=== PATIENT | male | born 1970 | race Two or more races ===

== ENCOUNTER 2020-06-09 11:34 | Inpatient (IN) | payer OTHER ==
--- NOTE | 2020-06-09 11:52 | BHS.RME ---
Substance Use & Tx History - Substance Use History Alcohol Substance amount: 1 case beers + 1 pint hard liquor Frequency of use: Daily Substance route: Oral Date of Last Use: 06/08/20 Marijuana/Hashish Substance amount: $40 Frequency of use: Daily Substance route: Smoking Date of Last Use: 06/08/20 Physical/Psych/Mental Status - Behavior General Behavior: Increased activity (restlessness, agitation) Eye Contact: Normal - Cooperativeness Cooperativeness: Cooperative - Thinking Thought Processes: Tight, Logical, Goal Directed - Physical Health Problems Is patient presently having any pain?: No Does patient presently have any injuries (include location): No Does patient currently have a fever: No Is patient : No CIWA Nausea/Vomitin-Mild Nausea/No Vomiting Muscle Tremors: 2 Anxiety: 2 Agitation: 3 Paroxysmal Sweats: 1-Minimal Palms Moist Orientation: 0-Oriented Tacttile Disturbances: 2-Mild Itch/Numbness/Burn Auditory Disturbances: 0-None Visual Disturbances: 0-None Headache: 2-Mild CIWA-Ar Total Score: 13
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
[2020-06-09] MEDS ORDERED: chlordiazePOXIDE HCL 25 MG CAPSULE PO PRN (13:53)
[2020-06-09] MEDS ORDERED: BISMUTH SUBSALICYLATE 262 MG/15 ML BTL PO PRN (13:53)
[2020-06-09] MEDS ORDERED: MAGNESIUM CITRATE 300 ML BOTTLE PO PRN (13:53)
[2020-06-09] MEDS ORDERED: ONDANSETRON *ODT* 4 MG TABLET SL PRN (13:53)
[2020-06-09] MEDS ORDERED: IBUPROFEN 400 MG TABLET (FP) PO PRN (13:53)
[2020-06-09] MEDS ORDERED: MAGNESIUM HYDROX 2400MG/30ML ORAL SUSPENSION 30 ML CUP PO PRN (13:53)
[2020-06-09] MEDS ORDERED: ACETAMINOPHEN 325 MG TABLET (FP) PO PRN ×2 (13:53)
[2020-06-09] MEDS ORDERED: NICOTINE POLACRILEX 2 MG GUM BUC PRN (13:53)
[2020-06-09] MEDS ORDERED: MENTHOL/PHENOL 1 EACH UD MM PRN (13:53)
[2020-06-09] MEDS ORDERED: METHOCARBAMOL 500 MG TABLET PO PRN (13:53)
[2020-06-09 14:18] VITALS: BMI 23.6
[2020-06-09] MEDS ORDERED: TUBERCULIN PPD 5 TU/0.1ML VIAL ID ONE (15:32)
[2020-06-09] MEDS: levETIRAcetam 500 MG TABLET (FP) PO SCH ×2 (15:39→22:57)
[2020-06-09] MEDS: hydrOXYzine PAMOATE 25 MG CAPSULE (FP) PO SCH ×3 (15:39→22:58)
[2020-06-09 18:00] LABS: HEMATOCRIT 43.2 % (35.4-49); HEMOGLOBIN 14.3 GM/dL (11.7-16.9); MCH 30.4 pg (25.7-33.7); MCHC 33.1 g/dl (32.0-35.9); MEAN CELL VOLUME 91.9 fl (80-96); MEAN PLT VOLUME 8.4 fl (7.5-11.1); PLATELET COUNT 282 K/MM3 (134-434); RBC 4.71 M/mm3 (4.00-5.60); RDW 14.3 % (11.9-15.9); WHITE BLOOD COUNT 7.4 K/mm3 (4.0-10.0)
[2020-06-09 18:14] LABS: ALBUMIN 3.9 g/dl (3.4-5.0); BLOOD UREA NITROGEN 13.4 mg/dL (7-18); CALCIUM 8.9 mg/dL (8.5-10.1); CREATININE 0.8 mg/dL (0.55-1.3); POTASSIUM 4.3 mmol/L (3.5-5.1); TOT PROT 7.4 g/dl (6.4-8.2)
[2020-06-09] MEDS: chlordiazePOXIDE HCL 25 MG CAPSULE PO SCH ×2 (19:09→22:58)
[2020-06-09] MEDS: MELATONIN 5 MG TABLETS PO SCH (22:57)
[2020-06-09] MEDS: THIAMINE HCL 100 MG TABLET (FP) PO SCH (22:58)
[2020-06-10] MEDS: hydrOXYzine PAMOATE 25 MG CAPSULE (FP) PO SCH ×5 (06:24→22:26)
[2020-06-10] MEDS: chlordiazePOXIDE HCL 25 MG CAPSULE PO SCH ×4 (06:24→22:26)
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
[2020-06-10] MEDS: PRENATAL VITAMINS W/ FOLIC ACID TABLET (FP) PO SCH (10:56)
[2020-06-10] MEDS: NICOTINE 7 MG/24 HOURS TOPICAL PATCH TD SCH (10:56)
[2020-06-10] MEDS: levETIRAcetam 500 MG TABLET (FP) PO SCH ×2 (10:57→22:25)
--- NOTE | 2020-06-10 11:54 | PN ---
S CIWA - CIWA Score Nausea/Vomitin-No Nausea/No Vomiting Muscle Tremors: 2 Anxiety: 3 Agitation: 3 Paroxysmal Sweats: No Perspiration Orientation: 0-Oriented Tacttile Disturbances: 0-None Auditory Disturbances: 0-None Visual Disturbances: 0-None Headache: 0-None Present CIWA-Ar Total Score: 8 BHS Progress Note (SOAP) Subjective: Pt is a 49 y/o male admitted to detox for withdrawal sx. c/o anxiety fatigue Objective: 06/10/20 13:20 Vital Signs - 24 hr 06/09/20 06/09/20 06/09/20 14:14 15:05 18:35 Temperature 97.8 F 97.8 F 97.3 F L Pulse Rate 57 L 50 L 60 Respiratory 16 18 18 Rate Blood Pressure 122/78 119/66 121/71 O2 Sat by Pulse 95 97 Oximetry (%) 06/09/20 06/10/20 06/10/20 21:12 06:34 08:50 Temperature 97.3 F L 98 F 97.1 F L Pulse Rate 53 L 49 L 54 L Respiratory 18 18 19 Rate Blood Pressure 121/74 110/71 100/60 O2 Sat by Pulse 96 96 96 Oximetry (%) Laboratory Tests 06/09/20 06/09/20 06/09/20 13:40 13:40 13:40 WBC 7.4 RBC 4.71 Hgb 14.3 Hct 43.2 MCV 91.9 MCH 30.4 MCHC 33.1 RDW 14.3 Plt Count 282 MPV 8.4 Sodium 141 Potassium 4.3 Chloride 104 Carbon Dioxide 32 Anion Gap 5 L BUN 13.4 Creatinine 0.8 Est GFR (CKD-EPI)AfAm 120.72 Est GFR (CKD-EPI)NonAf 104.16 Random Glucose 115 H Calcium 8.9 Total Bilirubin 1.0 AST 14 L ALT 26 Alkaline Phosphatase 70 Total Protein 7.4 Albumin 3.9 Syphilis Serology Non-reactive covid-19 result pending alert o x 3 nad oob ambulating with steady gait. Assessment: 06/10/20 13:20 mild withdrawal sx Plan: cont detox increase po fluids maintain safety
[2020-06-10] MEDS: THIAMINE HCL 100 MG TABLET (FP) PO SCH (22:26)
[2020-06-10] MEDS: MELATONIN 5 MG TABLETS PO SCH (22:26)
[2020-06-11] MEDS: hydrOXYzine PAMOATE 25 MG CAPSULE (FP) PO SCH ×5 (06:53→22:13)
[2020-06-11] MEDS: chlordiazePOXIDE HCL 25 MG CAPSULE PO SCH ×4 (06:54→22:13)
[2020-06-11] MEDS: NICOTINE 7 MG/24 HOURS TOPICAL PATCH TD SCH (10:46)
[2020-06-11] MEDS: PRENATAL VITAMINS W/ FOLIC ACID TABLET (FP) PO SCH (10:46)
[2020-06-11] MEDS: levETIRAcetam 500 MG TABLET (FP) PO SCH ×2 (10:47→22:12)
--- NOTE | 2020-06-11 10:47 | PN ---
S CIWA - CIWA Score Nausea/Vomitin-No Nausea/No Vomiting Muscle Tremors: None Anxiety: 2 Agitation: 0-Normal Activity Paroxysmal Sweats: 3 Orientation: 0-Oriented Tacttile Disturbances: 0-None Auditory Disturbances: 0-None Visual Disturbances: 0-None Headache: 2-Mild CIWA-Ar Total Score: 7 BHS Progress Note (SOAP) Subjective: c/o anxiety, sweats, and headache. Objective: 06/11/20 10:48 Vital Signs 06/11/20 06/11/20 06:06 09:43 Temperature 97.4 F L 98.2 F Pulse Rate 57 L 66 Respiratory 18 18 Rate Blood Pressure 115/63 133/60 O2 Sat by Pulse 99 99 Oximetry (%) Laboratory Last Values WBC 7.4 K/mm3 (4.0-10.0) 06/09/20 13:40 RBC 4.71 M/mm3 (4.00-5.60) 06/09/20 13:40 Hgb 14.3 GM/dL (11.7-16.9) 06/09/20 13:40 Hct 43.2 % (35.4-49) 06/09/20 13:40 MCV 91.9 fl (80-96) 06/09/20 13:40 MCH 30.4 pg (25.7-33.7) 06/09/20 13:40 MCHC 33.1 g/dl (32.0-35.9) 06/09/20 13:40 RDW 14.3 % (11.9-15.9) 06/09/20 13:40 Plt Count 282 K/MM3 (134-434) 06/09/20 13:40 MPV 8.4 fl (7.5-11.1) 06/09/20 13:40 Sodium 141 mmol/L (136-145) 06/09/20 13:40 Potassium 4.3 mmol/L (3.5-5.1) 06/09/20 13:40 Chloride 104 mmol/L (98-107) 06/09/20 13:40 Carbon Dioxide 32 mmol/L (21-32) 06/09/20 13:40 Anion Gap 5 MMOL/L (8-16) L 06/09/20 13:40 BUN 13.4 mg/dL (7-18) 06/09/20 13:40 Creatinine 0.8 mg/dL (0.55-1.3) 06/09/20 13:40 Est GFR (CKD-EPI)AfAm 120.72 06/09/20 13:40 Est GFR (CKD-EPI)NonAf 104.16 06/09/20 13:40 Random Glucose 115 mg/dL (74-106) H 06/09/20 13:40 Calcium 8.9 mg/dL (8.5-10.1) 06/09/20 13:40 Total Bilirubin 1.0 mg/dL (0.2-1) 06/09/20 13:40 AST 14 U/L (15-37) L 06/09/20 13:40 ALT 26 U/L (13-61) 06/09/20 13:40 Alkaline Phosphatase 70 U/L (45-117) 06/09/20 13:40 Total Protein 7.4 g/dl (6.4-8.2) 06/09/20 13:40 Albumin 3.9 g/dl (3.4-5.0) 06/09/20 13:40 Syphilis Serology Non-reactive (NONREACTIVE) 06/09/20 13:40 Labs noted. Assessment: 06/11/20 10:48 AOX3, in no acute respiratory distress. Full ROM, ambulating in the unit. Withdrawal symptoms. Plan: continue detox.
[2020-06-11] MEDS: MAG HYDROX/AL HYDROX/SIMETH 30 ML UNIT-DOSE CUP PO PRN ×2 (14:12→19:13)
[2020-06-11] MEDS: MELATONIN 5 MG TABLETS PO SCH (22:13)
[2020-06-11] MEDS: THIAMINE HCL 100 MG TABLET (FP) PO SCH (22:13)
[2020-06-12] MEDS ORDERED: chlordiazePOXIDE HCL 10 MG CAPSULE PO PRN
[2020-06-12] MEDS: hydrOXYzine PAMOATE 25 MG CAPSULE (FP) PO SCH ×5 (06:42→22:28)
[2020-06-12] MEDS: chlordiazePOXIDE HCL 10 MG CAPSULE PO SCH ×4 (06:42→22:28)
[2020-06-12] MEDS: PRENATAL VITAMINS W/ FOLIC ACID TABLET (FP) PO SCH (10:56)
[2020-06-12] MEDS: NICOTINE 7 MG/24 HOURS TOPICAL PATCH TD SCH (10:56)
[2020-06-12] MEDS: levETIRAcetam 500 MG TABLET (FP) PO SCH ×2 (10:56→22:28)
--- NOTE | 2020-06-12 16:52 | PN ---
S CIWA - CIWA Score Nausea/Vomitin-No Nausea/No Vomiting Muscle Tremors: 2 Anxiety: 2 Agitation: 1-Slight > Activity Paroxysmal Sweats: 1-Minimal Palms Moist Orientation: 0-Oriented Tacttile Disturbances: 0-None Auditory Disturbances: 0-None Visual Disturbances: 0-None Headache: 0-None Present CIWA-Ar Total Score: 6 BHS Progress Note (SOAP) Subjective: Fatigue Patient request chicken meals or soup only, stated he's athletic and doesn't eat meat or fish Objective: 06/12/20 16:48 Last Vital Signs Temp Pulse Resp BP Pulse Ox 98.7 F 69 18 106/72 98 06/12/20 13:16 06/12/20 13:16 06/12/20 13:16 06/12/20 13:16 06/12/20 13:16 Laboratory Tests 06/09/20 06/09/20 06/09/20 13:40 13:40 13:40 WBC 7.4 RBC 4.71 Hgb 14.3 Hct 43.2 MCV 91.9 MCH 30.4 MCHC 33.1 RDW 14.3 Plt Count 282 MPV 8.4 Sodium 141 Potassium 4.3 Chloride 104 Carbon Dioxide 32 Anion Gap 5 L BUN 13.4 Creatinine 0.8 Est GFR (CKD-EPI)AfAm 120.72 Est GFR (CKD-EPI)NonAf 104.16 Random Glucose 115 H Calcium 8.9 Total Bilirubin 1.0 AST 14 L ALT 26 Alkaline Phosphatase 70 Total Protein 7.4 Albumin 3.9 Syphilis Serology Non-reactive COVID-19 ([facility]) 06/09/20 13:54 WBC RBC Hgb Hct MCV MCH MCHC RDW Plt Count MPV Sodium Potassium Chloride Carbon Dioxide Anion Gap BUN Creatinine Est GFR (CKD-EPI)AfAm Est GFR (CKD-EPI)NonAf Random Glucose Calcium Total Bilirubin AST ALT Alkaline Phosphatase Total Protein Albumin Syphilis Serology COVID-19 ([facility]) Not detected Labs reviewed: serum glucose 115 (high) Assessment: 06/12/20 16:49 Withdrawal sxs Noted with hyperglycemia Plan: Continue detox Encourage PO water intake Hyperglycemia: mild, denies DM, could be r/t withdrawal, repeat fasting glucose
[2020-06-12] MEDS: MAG HYDROX/AL HYDROX/SIMETH 30 ML UNIT-DOSE CUP PO PRN (21:25)
[2020-06-12] MEDS: MELATONIN 5 MG TABLETS PO SCH (22:28)
[2020-06-12] MEDS: THIAMINE HCL 100 MG TABLET (FP) PO SCH (22:28)
[2020-06-13] MEDS: chlordiazePOXIDE HCL 10 MG CAPSULE PO SCH ×2 (06:49→17:57)
[2020-06-13] MEDS: hydrOXYzine PAMOATE 25 MG CAPSULE (FP) PO SCH ×3 (06:51→13:15)
[2020-06-13] MEDS: PRENATAL VITAMINS W/ FOLIC ACID TABLET (FP) PO SCH (10:58)
[2020-06-13] MEDS: NICOTINE 7 MG/24 HOURS TOPICAL PATCH TD SCH (10:58)
[2020-06-13] MEDS: levETIRAcetam 500 MG TABLET (FP) PO SCH ×2 (10:59→22:21)
[2020-06-13] MEDS: MAG HYDROX/AL HYDROX/SIMETH 30 ML UNIT-DOSE CUP PO PRN ×2 (13:17→22:41)
--- NOTE | 2020-06-13 15:15 | PN ---
BHS CIWA - CIWA Score Nausea/Vomitin-No Nausea/No Vomiting Muscle Tremors: 2 Anxiety: 3 Agitation: 0-Normal Activity Paroxysmal Sweats: 1-Minimal Palms Moist Orientation: 0-Oriented Tacttile Disturbances: 0-None Auditory Disturbances: 0-None Visual Disturbances: 0-None Headache: 0-None Present CIWA-Ar Total Score: 6 BHS Progress Note (SOAP) Subjective: c/o anxiety "gas" Objective: 06/13/20 15:11 Vital Signs - 24 hr 06/12/20 06/12/20 06/13/20 16:52 20:55 07:00 Temperature 97.5 F L 97.3 F L 97.9 F Pulse Rate 60 67 51 L Respiratory 18 17 18 Rate Blood Pressure 114/46 L 114/60 103/63 O2 Sat by Pulse 97 97 Oximetry (%) Laboratory Tests 06/09/20 06/09/20 06/09/20 13:40 13:40 13:40 WBC 7.4 RBC 4.71 Hgb 14.3 Hct 43.2 MCV 91.9 MCH 30.4 MCHC 33.1 RDW 14.3 Plt Count 282 MPV 8.4 Sodium 141 Potassium 4.3 Chloride 104 Carbon Dioxide 32 Anion Gap 5 L BUN 13.4 Creatinine 0.8 Est GFR (CKD-EPI)AfAm 120.72 Est GFR (CKD-EPI)NonAf 104.16 Random Glucose 115 H Calcium 8.9 Total Bilirubin 1.0 AST 14 L ALT 26 Alkaline Phosphatase 70 Total Protein 7.4 Albumin 3.9 Levetiracetam Syphilis Serology Non-reactive COVID-19 ([facility]) 06/09/20 06/09/20 13:40 13:54 WBC RBC Hgb Hct MCV MCH MCHC RDW Plt Count MPV Sodium Potassium Chloride Carbon Dioxide Anion Gap BUN Creatinine Est GFR (CKD-EPI)AfAm Est GFR (CKD-EPI)NonAf Random Glucose Calcium Total Bilirubin AST ALT Alkaline Phosphatase Total Protein Albumin Levetiracetam <1.0 L Syphilis Serology COVID-19 ([facility]) Not detected covid-19 not detected alert o x 3 nad pt seen in bed at rounds and communicated needs coherently Assessment: 06/13/20 15:14 withdrawal sx Plan: cont detox increase po fluids maintain safety [place] prn
[2020-06-13] MEDS: MELATONIN 5 MG TABLETS PO SCH (22:21)
[2020-06-13] MEDS: THIAMINE HCL 100 MG TABLET (FP) PO SCH (22:21)
[2020-06-14] MEDS ORDERED: chlordiazePOXIDE HCL 10 MG CAPSULE PO ONE (05:00)
[2020-06-14 06:36] VITALS: BP 108/51; PULSE 51; TEMP 97.3
--- NOTE | 2020-06-14 09:07 | DS ---
[facility] Detox Discharge Summary Admission Date: 06/09/20 Discharge Date: 06/14/20 - History Present History: Alcohol Dependence, Cannabis Dependence Additional Comments: Pt [facility] [address] Pertinent Past History: Seizure Disorder Dislipidemia PTSD - Physical Exam Results Vital Signs: Vital Signs Temperature 97.3 F L 06/14/20 06:01 Pulse Rate 51 L 06/14/20 06:01 Respiratory Rate 16 06/14/20 06:01 Blood Pressure 108/51 L 06/14/20 06:01 O2 Sat by Pulse Oximetry (%) 98 06/14/20 06:01 alert o x 3 nad oob ambulating with steady gait cardiac;s1 s2,rrr lungs;ctab abdomen:soft,+bs,nt,nd extremities:no edema,skin intact Pertinent Admission Physical Exam Findings: Laboratory Tests 06/09/20 06/09/20 06/09/20 13:40 13:40 13:40 WBC 7.4 RBC 4.71 Hgb 14.3 Hct 43.2 MCV 91.9 MCH 30.4 MCHC 33.1 RDW 14.3 Plt Count 282 MPV 8.4 Sodium 141 Potassium 4.3 Chloride 104 Carbon Dioxide 32 Anion Gap 5 L BUN 13.4 Creatinine 0.8 Est GFR (CKD-EPI)AfAm 120.72 Est GFR (CKD-EPI)NonAf 104.16 Random Glucose 115 H Calcium 8.9 Total Bilirubin 1.0 AST 14 L ALT 26 Alkaline Phosphatase 70 Total Protein 7.4 Albumin 3.9 Levetiracetam Syphilis Serology Non-reactive COVID-19 ([facility]) 06/09/20 06/09/20 13:40 13:54 WBC RBC Hgb Hct MCV MCH MCHC RDW Plt Count MPV Sodium Potassium Chloride Carbon Dioxide Anion Gap BUN Creatinine Est GFR (CKD-EPI)AfAm Est GFR (CKD-EPI)NonAf Random Glucose Calcium Total Bilirubin AST ALT Alkaline Phosphatase Total Protein Albumin Levetiracetam <1.0 L Syphilis Serology COVID-19 ([facility]) Not detected - Treatment Hospital Course: Detox Protocol Followed, Detoxed Safely, Responded well, Discharged Condition Good, Rehab Referral Accepted Patient has Accepted a Rehab Referral to: [facility] - Medication Discharge Medications: Ambulatory Orders levETIRAcetam [Keppra -] 500 mg PO BID 06/09/20 - Diagnosis (1) Seizure disorder Status: Chronic (2) Alcohol dependence with withdrawal, uncomplicated Status: Acute (3) Dyslipidemia Status: Chronic (4) Meningioma Status: Chronic (5) Nicotine dependence Status: Acute Qualifiers: Nicotine product type: cigarettes Substance use status: in withdrawal Qualified Code(s): F17.213 - Nicotine dependence, cigarettes, with withdrawal (6) Hypercholesterolemia Status: Chronic (7) Cannabis dependence Status: Acute - AMA Did Patient Leave Against Medical Advice: No
[2020-06-14] MEDS: PRENATAL VITAMINS W/ FOLIC ACID TABLET (FP) PO SCH (10:23)
[2020-06-14] MEDS: NICOTINE 7 MG/24 HOURS TOPICAL PATCH TD SCH (10:23)
[2020-06-14] MEDS: levETIRAcetam 500 MG TABLET (FP) PO SCH (10:23)
== END 2020-06-14 11:10 | disposition other institution (70) | DRG 774 ==
LOC: YASAS 11:34 → Y5N DETOX 14:34
PROVIDERS: ADMIT Allergy & Immunology; ATTEND Allergy & Immunology
PROC: HZ2ZZZZ Detoxification Services for Substance Abuse Treatment (ICD-10-PCS; principal; 2020-06-09)
DX: F10.230 Alcohol dependence with withdrawal, uncomplicated (principal); F10.24 Alcohol dependence with alcohol-induced mood disorder; F10.280 Alcohol dependence with alcohol-induced anxiety disorder; F12.20 Cannabis dependence, uncomplicated; F14.21 Cocaine dependence, in remission; F34.1 Dysthymic disorder; F39 Unspecified mood [affective] disorder; D32.0 Benign neoplasm of cerebral meninges; R73.9 Hyperglycemia, unspecified; G40.909 Epilepsy, unspecified, not intractable, without status epilepticus; Z91.14 Patient's other noncompliance with medication regimen; Z91.013 Allergy to seafood; Z91.018 Allergy to other foods
CPT/HCPCS: 36415; 80053; 80177; 85027; 86780; U0003

== ENCOUNTER 2020-06-14 11:37 | Inpatient (IN) | payer OTHER ==
[2020-06-14] MEDS ORDERED: MAGNESIUM HYDROX 2400MG/30ML ORAL SUSPENSION 30 ML CUP PO PRN (12:53)
[2020-06-14] MEDS ORDERED: MAGNESIUM CITRATE 300 ML BOTTLE PO PRN (12:53)
[2020-06-14] MEDS ORDERED: P-EPHED 60MG/TRIPROLIDI 2.5MG TABLET PO PRN (12:53)
[2020-06-14] MEDS ORDERED: MENTHOL/PHENOL 1 EACH UD MM PRN (12:53)
[2020-06-14] MEDS ORDERED: hydrOXYzine PAMOATE 25 MG CAPSULE (FP) PO PRN (12:53)
[2020-06-14] MEDS ORDERED: IBUPROFEN 400 MG TABLET (FP) PO PRN (12:53)
[2020-06-14] MEDS ORDERED: ACETAMINOPHEN 325 MG TABLET (FP) PO PRN (12:53)
[2020-06-14] MEDS ORDERED: LOPERAMIDE HCL 2 MG CAPSULE PO PRN (12:53)
[2020-06-14] MEDS ORDERED: guaiFENesin 200 MG/10 ML 10 ML UNIT-DOSE CUPS PO PRN (12:53)
[2020-06-14] MEDS ORDERED: NICOTINE POLACRILEX 2 MG GUM BUC PRN (12:53)
--- NOTE | 2020-06-14 13:27 | HP ---
[facility] Rehab Assess/Revision - Admission History Date of Admission to Rehab: 06/14/20 - Vital signs Vital Signs: Vital Signs Period Temp Pulse Resp BP Sys/Lopez Pulse Ox Last 24 Hr 97.5 F 61 18 122/65 - Findings Detox History & Physical reviewed: Yes Concur with findings: Yes Inpatient Rehab Admission - Rehab Decision to Admit Inpatient rehab admission?: Yes - Initial Determination Are CD services needed?: Yes Free of communicable disease: Yes Not in need of hospitalization: Yes - Rehab Admission Criteria Previous failed treatment: Yes Poor recovery environment: Yes Comorbidities: Yes Lacks judgement: Yes Patient is meeting Inpatient Rehab admission criteria:: Yes
[2020-06-14] MEDS: MELATONIN 5 MG TABLETS PO SCH (21:11)
[2020-06-14] MEDS: THIAMINE HCL 100 MG TABLET (FP) PO SCH (21:12)
[2020-06-14] MEDS: levETIRAcetam 500 MG TABLET (FP) PO SCH (21:59)
[2020-06-15] MEDS: PRENATAL VITAMINS W/ FOLIC ACID TABLET (FP) PO SCH (10:34)
[2020-06-15] MEDS: NICOTINE 14 MG/24 HOURS TOPICAL PATCH TD SCH (10:34)
[2020-06-15] MEDS: levETIRAcetam 500 MG TABLET (FP) PO SCH ×2 (10:34→21:42)
[2020-06-15] MEDS: BISMUTH SUBSALICYLATE 262 MG/15 ML BTL PO PRN (16:00)
[2020-06-15] MEDS: MAG HYDROX/AL HYDROX/SIMETH 30 ML UNIT-DOSE CUP PO PRN (20:45)
[2020-06-15] MEDS: THIAMINE HCL 100 MG TABLET (FP) PO SCH (21:42)
[2020-06-15] MEDS: MELATONIN 5 MG TABLETS PO SCH (21:42)
[2020-06-16] MEDS: levETIRAcetam 500 MG TABLET (FP) PO SCH ×2 (10:58→21:09)
[2020-06-16] MEDS: NICOTINE 14 MG/24 HOURS TOPICAL PATCH TD SCH (12:16)
[2020-06-16] MEDS: PRENATAL VITAMINS W/ FOLIC ACID TABLET (FP) PO SCH (12:16)
[2020-06-16] MEDS: MAG HYDROX/AL HYDROX/SIMETH 30 ML UNIT-DOSE CUP PO PRN (19:36)
[2020-06-16] MEDS: MELATONIN 5 MG TABLETS PO SCH (21:09)
[2020-06-16] MEDS: THIAMINE HCL 100 MG TABLET (FP) PO SCH (21:09)
[2020-06-17] MEDS: BISMUTH SUBSALICYLATE 262 MG/15 ML BTL PO PRN ×2 (08:18→21:49)
[2020-06-17] MEDS: levETIRAcetam 500 MG TABLET (FP) PO SCH ×2 (11:02→21:50)
[2020-06-17] MEDS: PRENATAL VITAMINS W/ FOLIC ACID TABLET (FP) PO SCH (11:03)
[2020-06-17] MEDS: NICOTINE 14 MG/24 HOURS TOPICAL PATCH TD SCH (11:03)
[2020-06-17] MEDS ORDERED: ONDANSETRON *ODT* 4 MG TABLET SL PRN (13:44)
--- NOTE | 2020-06-17 14:07 | PN ---
[facility] Progress Note Note: Patient evaluated for c/o nausea and diarrhea. Patient denies vomiting but reports diarrhea x 4 episodes today (unwitnessed). Patient reports having sx for one day and has reduced appetite. Vital Signs Temperature 97.1 F L 06/17/20 06:27 Pulse Rate 53 L 06/17/20 06:27 Respiratory Rate 18 06/17/20 06:27 Blood Pressure 125/62 06/17/20 06:27 O2 Sat by Pulse Oximetry (%) 99 06/17/20 06:27 PE alert and oriented x 3 skin warm and dry in nad, resting in bed neck supple, no jvd gi soft, nt, nd ext full rom, amb ad soto A/P nausea unwittnessed diarrhea will order zofran 4mg q6h prn continue immodium as needed encourage oral fluids monitor clinically
[2020-06-17] MEDS: MELATONIN 5 MG TABLETS PO SCH (21:50)
[2020-06-17] MEDS: THIAMINE HCL 100 MG TABLET (FP) PO SCH (21:51)
[2020-06-18] MEDS ORDERED: PT OWN MED DRAWER 7, Y5N ONE (10:41)
[2020-06-18] MEDS: levETIRAcetam 500 MG TABLET (FP) PO SCH ×2 (11:06→21:15)
[2020-06-18] MEDS: NICOTINE 14 MG/24 HOURS TOPICAL PATCH TD SCH (11:07)
[2020-06-18] MEDS: PRENATAL VITAMINS W/ FOLIC ACID TABLET (FP) PO SCH (11:07)
[2020-06-18] MEDS: THIAMINE HCL 100 MG TABLET (FP) PO SCH (21:15)
[2020-06-18] MEDS: MELATONIN 5 MG TABLETS PO SCH (21:15)
[2020-06-19] MEDS: NICOTINE 14 MG/24 HOURS TOPICAL PATCH TD SCH (10:58)
[2020-06-19] MEDS: PRENATAL VITAMINS W/ FOLIC ACID TABLET (FP) PO SCH (10:58)
[2020-06-19] MEDS: levETIRAcetam 500 MG TABLET (FP) PO SCH ×2 (10:58→22:59)
[2020-06-19] MEDS: MAG HYDROX/AL HYDROX/SIMETH 30 ML UNIT-DOSE CUP PO PRN (19:56)
[2020-06-19] MEDS: MELATONIN 5 MG TABLETS PO SCH (21:36)
[2020-06-19] MEDS: THIAMINE HCL 100 MG TABLET (FP) PO SCH (21:37)
[2020-06-20] MEDS: levETIRAcetam 500 MG TABLET (FP) PO SCH ×2 (10:16→22:02)
[2020-06-20] MEDS: NICOTINE 14 MG/24 HOURS TOPICAL PATCH TD SCH (10:16)
[2020-06-20] MEDS: PRENATAL VITAMINS W/ FOLIC ACID TABLET (FP) PO SCH (11:16)
--- NOTE | 2020-06-20 11:33 | PN ---
[facility] Progress Note Note: Vital Signs Temperature 98.2 F 06/20/20 11:27 Pulse Rate 72 06/20/20 11:27 Respiratory Rate 18 06/20/20 11:27 Blood Pressure 127/64 06/20/20 11:27 O2 Sat by Pulse Oximetry (%) 97 06/19/20 20:27 Laboratory Tests 06/15/20 12:30 Levetiracetam 13.0 PATIENT C/O MILD DIZZINESS THIS MORNING. HE DENIES HEADACHE, WEAKNESS, CP, SOB CONFUSION AND LETHARGY. STATES " I FEEL LIKE THIS SOMETIMES BECAUSE OF THE KEPPRA. I DID NOT TAKE THIS MORNING BUT I WILL TAKE IT LATER TODAY SCHEDULED." PE ALERT AND ORIENTED X 3 SKIN WARM AND DRY +PERRLA, EOMS INTACT BL CAR S1S2 RESP CTA BL EXT FULL ROM, AMB AD VEE A/P: DIZZINESS-EPISODIC BUT STABLE ORAL FLUIDS ENCOURAGED CONTINUE TO MONITOR CLINICALLY KEPPRA CONTINUED ORDERED
[2020-06-20] MEDS: THIAMINE HCL 100 MG TABLET (FP) PO SCH (22:02)
[2020-06-20] MEDS: MELATONIN 5 MG TABLETS PO SCH (22:02)
[2020-06-21 07:05] VITALS: BP 129/70; PULSE 58; TEMP 97.3
--- NOTE | 2020-06-21 09:38 | DS ---
[facility] Rehab Discharge Summary - [facility] Rehab Discharge Summary Admission Date: 06/14/20 Discharge Date: 06/21/20 - History Present History: Alcohol dependence, Cannabis dependence, Cocaine dependence Pertinent Past History: Mr. Quarles presents to [facility] requesting admission for alcohol use disorder He was last here in November 2019, but left due to an altercation with staff/refusing to comply with search, threatening behavior. Prior to that visit, he was here in 2013 for rehab. PMH: meningioma, requires surgery, scheduled for soon but, must be off substances. On prophylactic Keppra, no hx of seizures. Pt admits to nonco mpliance due to sedation side effect PSH: none Psych: schizophrenia, depression, stopped his meds 3 months ago. SoC: lives with mother - Discharge Physical Exam Vital Signs: Vital Signs Temperature 97.3 F L 06/21/20 06:02 Pulse Rate 58 L 06/21/20 06:02 Respiratory Rate 18 06/21/20 06:02 Blood Pressure 129/70 06/21/20 06:02 O2 Sat by Pulse Oximetry (%) 99 06/21/20 06:02 Pertinent Admission Physical Exam Findings: Physical General Appearance: No Apparent Distress, HEENTM: EOMI, Normocephalic, Respiratory: No Respiratory Distress, No Accessory Muscle Use Neck: Supple Abdominal: +Bowel Sounds, Musculoskeletal: Gait Steady - Treatment Discharge Condition: Outpatient referral accepted (Patient referred to [facility]; medically stable for discharge.) Hospital Course: Patient attended groups, had 1:1 with his counselor. He had no acute or urgent medical problems while in rehab. He was adherent to his medication regimen and treatment plan. - Medication Discharge Medications: Ambulatory Orders levETIRAcetam [Keppra -] 500 mg PO BID 06/09/20 - Medication-Assisted Treatment (MAT) Medication-Assisted Treatment (MAT): No - Discharge Instructions Diet, activity, other medical instructions: Diet: as tolerated Activity: as tolerated Other medical instructions: Please follow up with discharge instructions. - Diagnosis (1) Alcohol dependence Current Visit: No Status: Chronic (2) Cannabis dependence Current Visit: No Status: Chronic (3) Cocaine dependence Current Visit: No Status: Chronic Qualifiers: Substance use status: in withdrawal Qualified Code(s): F14.23 - Cocaine dependence with withdrawal - Follow-up Referral Minutes to complete discharge: 15 - AMA Did Patient Leave Against Medical Advice: No
== END 2020-06-21 10:00 | disposition home or self-care (01) | DRG 772 ==
LOC: YASAS 11:37 → Y3W 11:38
PROVIDERS: ADMIT Allergy & Immunology; ATTEND Allergy & Immunology
PROC: HZ42ZZZ Group Counseling for Substance Abuse Treatment, Cognitive-Behavioral (ICD-10-PCS; principal; 2020-06-14)
DX: F10.20 Alcohol dependence, uncomplicated (principal); F14.20 Cocaine dependence, uncomplicated; F12.20 Cannabis dependence, uncomplicated; F17.210 Nicotine dependence, cigarettes, uncomplicated; R42 Dizziness and giddiness; R11.0 Nausea; R19.7 Diarrhea, unspecified; Z91.013 Allergy to seafood; Z91.018 Allergy to other foods
CPT/HCPCS: 36415; 80177